=== PATIENT | female | born 1990 | race Asian ===

== ENCOUNTER 2016-10-20 05:27 | Inpatient (IN) | payer OTHER ==
[~2016-10-20] VITALS: Ht 154.9 cm; Wt 64.5 kg
[2016-10-20] MEDS ORDERED: OXYTOCIN 30U/ 0.9% NaCL 500ML 500 ML IV SCH (05:29)
[2016-10-20] MEDS ORDERED: LACTATED RINGERS 1,000 ML IV SCH ×2 (05:29→05:30)
[2016-10-20] MEDS ORDERED: LACTATED RINGERS 1,000 ML IVBOLUS ONE (05:30)
[2016-10-20] MEDS ORDERED: METOCLOPRAMIDE 5 MG/ML, 2ML IV ONE (05:30)
[2016-10-20] MEDS ORDERED: SODIUM CITRATE/CITRIC ACID 30 ML UDC PO ONE (05:30)
[2016-10-20 06:00] VITALS: BP 121/82
[2016-10-20] MEDS ORDERED: SODIUM CITRATE/CITRIC ACID 30 ML UDC ONE (06:31)
[2016-10-20] MEDS ORDERED: NEWBORN KIT ONE (06:31)
[2016-10-20] MEDS ORDERED: METOCLOPRAMIDE 5 MG/ML, 2ML ONE ×2 (06:31→07:36)
[2016-10-20] MEDS ORDERED: FENTANYL PF 100 MCG/2ML ONE (07:16)
[2016-10-20] MEDS ORDERED: LABETALOL 5MG/ML, 20ML IV PRN (07:30)
[2016-10-20] MEDS ORDERED: MEPERIDINE/PF 25MG/0.5ML IVPush PRN (07:30)
[2016-10-20] MEDS ORDERED: PROMETHAZINE 25 MG/ML, 1ML IV PRN (07:30)
[2016-10-20] MEDS ORDERED: MIDAZOLAM 1 MG/ML, 2ML IV PRN (07:30)
[2016-10-20] MEDS ORDERED: hydrALAzine 20 MG/ML, 1ML IV PRN (07:30)
[2016-10-20] MEDS ORDERED: OXYcodone 5 MG/5 ML ORAL.SOL UDC PO PRN (07:30)
[2016-10-20] MEDS ORDERED: HYDROcodone/APAP 7.5-325MG/15ML UDC PO PRN (07:30)
[2016-10-20] MEDS ORDERED: ONDANSETRON 2MG/ML, 2ML IVPush PRN (07:30)
[2016-10-20] MEDS ORDERED: ALBUTEROL SULFATE 2.5 MG/3 ML NPPB PRN (07:30)
[2016-10-20] MEDS ORDERED: FENTANYL PF 100 MCG/2ML IV PRN (07:30)
[2016-10-20] MEDS ORDERED: EPHEDRINE 50 MG/ML, 1ML IVPush PRN (07:30)
[2016-10-20] MEDS ORDERED: ONDANSETRON 2MG/ML, 2ML ONE (07:36)
[2016-10-20] MEDS ORDERED: DEXAMETHASONE 4 MG/ML, 1ML ONE (07:36)
[2016-10-20] MEDS ORDERED: PHENYLEPHRINE 10 MG/ML ONE (07:36)
[2016-10-20] MEDS ORDERED: KETOROLAC 30 MG/1 ML ONE (07:36)
[2016-10-20 08:41] VITALS: BP 115/63
[2016-10-20] MEDS: LACTATED RINGERS 1,000 ML IV SCH ×4 (08:57→18:57)
[2016-10-20] MEDS: PRENATAL VIT/IRON/FA 1 EACH TABLET PO SCH (09:00)
[2016-10-20] MEDS ORDERED: OXYcodone/APAP 5/325MG TABLET PO PRN (09:00)
[2016-10-20] MEDS ORDERED: MISOPROSTOL 200 MCG TABLET PR PRN (09:00)
[2016-10-20] MEDS ORDERED: OXYcodone IR 5MG TABLET PO PRN (09:00)
[2016-10-20] MEDS ORDERED: IBUPROFEN 600 MG TABLET PO PRN (09:00)
[2016-10-20] MEDS ORDERED: ONDANSETRON 2MG/ML, 2ML IV PRN (09:00)
[2016-10-20] MEDS ORDERED: morphine SULFATE 10 MG/ML, 1ML IVPush PRN (09:00)
[2016-10-20] MEDS ORDERED: OXYTOCIN 30U/ 0.9% NaCL 500ML 500 ML ONE (09:22)
[2016-10-20] MEDS: OXYTOCIN 30U/ 0.9% NaCL 500ML 500 ML IV SCH ×2 (09:24→18:57)
[2016-10-20 10:00] VITALS: BP 121/74
[2016-10-20] MEDS ORDERED: OXYcodone 5 MG/5 ML ORAL.SOL UDC ONE (10:24)
[2016-10-20 14:30] VITALS: BP 106/64
[2016-10-20] MEDS: KETOROLAC 30 MG/1 ML IV SCH ×2 (15:07→21:07)
[2016-10-20 19:56] VITALS: BP 104/61
[2016-10-21] MEDS: LACTATED RINGERS 1,000 ML IV SCH ×5 (00:57→16:57)
[2016-10-21 02:45] VITALS: BP 100/59
[2016-10-21] MEDS: KETOROLAC 30 MG/1 ML IV SCH ×4 (02:52→23:36)
[2016-10-21] MEDS: OXYTOCIN 30U/ 0.9% NaCL 500ML 500 ML IV SCH ×2 (04:57→14:57)
[2016-10-21] MEDS: PRENATAL VIT/IRON/FA 1 EACH TABLET PO SCH (07:54)
[2016-10-21] MEDS: DOCUSATE 100 MG CAPSULE PO PRN (07:55)
[2016-10-21 08:30] VITALS: BP 105/58
[2016-10-21 20:00] VITALS: BP 101/59
[2016-10-22] MEDS: OXYTOCIN 30U/ 0.9% NaCL 500ML 500 ML IV SCH ×2 (00:57→02:14)
[2016-10-22] MEDS: LACTATED RINGERS 1,000 ML IV SCH ×4 (00:57→02:14)
[2016-10-22] MEDS: KETOROLAC 30 MG/1 ML IV SCH ×2 (05:22→11:30)
[2016-10-22 07:20] VITALS: BP 119/78
[2016-10-22] MEDS: PRENATAL VIT/IRON/FA 1 EACH TABLET PO SCH (09:05)
[2016-10-22] MEDS: DOCUSATE 100 MG CAPSULE PO PRN (09:06)
[2016-10-22] MEDS ORDERED: OXYC-302 PO (10:57)
[2016-10-22] MEDS ORDERED: IBUP-1222 PO (10:58)
== END 2016-10-22 12:15 | disposition home or self-care (01) | DRG 765 ==
LOC: LDIP 05:27 → 2NW 10:34
PROVIDERS: ADMIT Obstetrics & Gynecology; ATTEND Obstetrics & Gynecology
PROC: 10D00Z1 Extraction of Products of Conception, Low, Open Approach (ICD-10-PCS; principal; 2016-10-20)
DX: O32.1XX0 Maternal care for breech presentation, not applicable or unspecified (principal); O41.03X0 Oligohydramnios, third trimester, not applicable or unspecified; O24.420 Gestational diabetes mellitus in childbirth, diet controlled; Z37.0 Single live birth; Z3A.39 39 weeks gestation of pregnancy; Z82.3 Family history of stroke; Z82.49 Family history of ischemic heart disease and other diseases of the circulatory system; Z83.3 Family history of diabetes mellitus
CPT/HCPCS: 36415; 85025; 86850; 86900; J1100; J1885; J2405; J3010; J2370; J2590; J2765; J7120